=== PATIENT | female | born 1985 | race Two or more races ===

== ENCOUNTER 2019-08-07 08:09 | Emergency (ER) | payer SELFPAY ==
[~2019-08-07] VITALS: Ht 162.6 cm; Wt 59.0 kg
[2019-08-07 08:32] VITALS: BP 118/84
== END 2019-08-07 09:15 | disposition left against medical advice (07) ==
LOC: ER 08:27
DX: F10.29 Alcohol dependence with unspecified alcohol-induced disorder (principal); S40.022A Contusion of left upper arm, initial encounter; S60.211A Contusion of right wrist, initial encounter; Y90.9 Presence of alcohol in blood, level not specified; Y04.1XXA Assault by human bite, initial encounter; Y93.89 Activity, other specified; Y92.488 Other paved roadways as the place of occurrence of the external cause
CPT/HCPCS: 99283